=== PATIENT | female | born 1945 | race Caucasian/White ===

== ENCOUNTER 2023-09-19 13:49 | Outpatient (CLI) | payer MEDICARE | END 2023-09-19 23:59 | disposition home or self-care (01) | LOC: RAD 13:49 | PROVIDERS: ATTEND Registered Nurse | DX: M47.812 Spondylosis without myelopathy or radiculopathy, cervical region (principal); M48.02 Spinal stenosis, cervical region; M54.2 Cervicalgia | CPT/HCPCS: 72050 ==